=== PATIENT | male | born 1955 | race African-American/Black ===

== ENCOUNTER 2024-03-03 10:02 | Outpatient (CLI) | payer MEDICARE | END 2024-03-03 10:03 | disposition home or self-care (01) | LOC: CSHRAD 10:02 | PROVIDERS: ATTEND Family Medicine Sports Medicine | DX: M54.50 Low back pain, unspecified (principal); M47.816 Spondylosis without myelopathy or radiculopathy, lumbar region | CPT/HCPCS: 72100 ==